=== PATIENT | male | born 1965 | race Caucasian/White ===

== ENCOUNTER 2019-04-30 06:09 | Observation (INO) ==
--- NOTE | 2019-04-09 09:48 | PAT Medication Instructions ---
Medication Instructions Date of Service April 09, 2019 Home Medications bupropion HCl [Wellbutrin XL] 300 mg PO QAM pantoprazole 20 mg PO QAM pramipexole 1.5 mg PO HS rosuvastatin 10 mg PO QPM STOP taking 24 hours before surgery pramipexole 1.5 mg PO HS Take morning of surgery With a small sip of water, OTHERWISE NOTHING TO EAT OR DRINK AFTER MIDNIGHT: bupropion HCl [Wellbutrin XL] 300 mg PO QAM pantoprazole 20 mg PO QAM Take evening before surgery rosuvastatin 10 mg PO QPM Other Notes If you have any questions please call us at [phone] or [phone] or [phone] or [phone]
--- NOTE | 2019-04-10 13:41 | Anesthesiology Consultation ---
Date of Service April 10, 2019 Assessment & Plan (1) Encounter for pre-operative examination: Chart Review Chart Review: Pending: Refer to Additional Notes / Consult section (pending preop testing (labs, EKG, CXR)) and Patient seen in Pre Admission Testing Teaching & Discussion Pre-Anesthesia Teaching/Discussion Notes: Instructed NPO after midnight before surgery,except medications with 15 cc of water. Medication instructions provid ed according to the PAT guidelines. History Surgery Operation Date: 04/30/19 07:45 Proposed Procedures p C5-C6, C6-C7 Anterior Cervical Discectomy and Fusion - Neeraj Downing, Height/Weight Height: 5 ft 10 in Weight: 79.1 kg Allergies Allergy/AdvReac Type Severity Reaction Status Date / Time simvastatin AdvReac Muscle Pain Verified 04/03/19 08:34 Medications Home Medications Medication Instructions Recorded Confirmed Last Taken bupropion HCl [Wellbutrin XL] 300 mg PO QAM 04/03/19 04/03/19 Unknown pantoprazole 20 mg PO QAM 04/03/19 04/03/19 Unknown pramipexole 1.5 mg PO HS 04/03/19 04/03/19 Unknown rosuvastatin 10 mg PO QPM 04/03/19 04/03/19 Unknown Past Medical History Medical History Barretts esophagus Depression Diabetes mellitus, type 2 diet controlled GERD (gastroesophageal reflux disease) controlled Hearing deficit BL DESIR History of colon polyps Hyperlipidemia Restless leg syndrome Exercise / Class Metabolic Activity II 4-5 Yardwork/Stairs/Walk up hill Past Family History Family History Grandmother (Maternal) Family history of diabetes mellitus Past Surgical History Surgical History History of arthroscopy of both knees History of carpal tunnel release BL History of colonoscopy w/ polypectomy History of esophagogastroduodenoscopy (EGD) History of wisdom tooth extraction Hx of LASIK Past Anesthesia History No Hx of Anesthesia Complications and No Family Hx of Anesthesia Complications History of PONV No Hx of PONV and No Hx of Motion Sickness STOP BANG Total 4 Social History Smoking Status: Former smoker tobacco type: cigarettes and smokeless tobacco Do You Dip or Chew Tobacco: Yes (1 can per day/advised NPO) Smoking End Date: Quit years ago Hx Alcohol Use: Yes Alcohol type: beer alcohol intake frequency: a few times a week Hx Substance Use: No substance use type: does not use Review of Systems Reflux controlled. Patient denies chest pain, shortness of breath, cough, wheezing, palpitations. Physical Exam Vital Signs VITALS BP 136/82 P 72 TEMP 98.0 SP02 96%RA RESP 16 PHYSICAL Full neck and c-spine range of motion. Full TMJ range of motion. TMD 2 finger breaths Mallampati Score 3 Dentition: intact, crowns on molars Lungs: clear throughout to auscultation Cardiac: regular rate and rhythm, no murmurs noted Spine: normal Carotid arteries: negative bruit Extremities: no edema Trimmed kowalski
[2019-04-25 18:00] LABS: Basophils # (auto) 0.02 K/uL (0-0.2); Basophils % (auto) 0.2 %; Eosinophils # (auto) 0.07 K/uL (0-0.5); Eosinophils % (auto) 0.8 %; Hematocrit (blood only) 42.4 % (42-52); Hemoglobin 14.6 g/dL (14.0-18.0); Immature Granulocytes # (auto) 0.03 K/uL (0.00-0.02); Immature Granulocytes % (auto) 0.4 %; Lymphocytes # (auto) 2.14 K/uL (1.2-3.4); Mean Corpuscular Hgb Conc 34.4 g/dL (32-36); Mean Corpuscular Volume 98.8 fL (80-100); Mean Platelet Volume 10.7 fL (7.4-10.4); Monocytes # (auto) 0.47 K/uL (0.11-0.59); Monocytes % (auto) 5.5 %; Neutrophils # (auto) 5.83 K/uL (1.4-6.5); Neutrophils % (auto) 68.1 %; Platelet Count 168 K/uL (130-400); RDW Coefficient of Variation 12.4 % (11.5-14.5); RDW Standard Deviation 44.7 fL (36.4-46.3); Red Blood Count 4.29 M/uL (4.7-6.1); White Blood Count 8.56 K/uL (4.8-10.8)
[2019-04-25 18:22] LABS: BUN Creatinine Ratio 12.8 (10-20); Blood Urea Nitrogen 15 mg/dl (7-18); Calcium 8.9 mg/dl (8.5-10.1); Carbon Dioxide 29 mmol/L (21-32); Chloride 105 mmol/L (98-107); Est GFR (African American) 79.2; Est GFR (Non-African American) 68.4; Glucose 91 mg/dl (70-99); Potassium 3.9 mmol/L (3.5-5.1); Sodium 140 mmol/L (136-145)
[2019-04-25 19:19] LABS: Appearance Urine Clear (Clear); Bacteria Urine Automated Negative (Negative); Bilirubin Urine Negative (Negative); Blood Urine Trace (Negative); Cast Urine Automated 0 /lpf (0-5); Color Urine Yellow; Epithelial Cell Urine Auto 0-5 /lpf (0-5); Glucose Urine UA Negative (Negative); Ketones Urine Negative (Negative); Leukocyte Esterase Urine Negative (Negative); Nitrite Urine Negative (Negative); Protein Urine Negative (Negative); Specific Gravity Urine 1.017 (1.000-1.030); Urobilinogen Urine Negative (Negative); pH Urine 7.5 (4.5-7.5)
[~2019-04-30 06:09] MED LIST: ACETAMINOPHEN 500 MG TAB PO SCH; CEFAZOLIN 1000MG 1,000 MG/7.5 ML SYR IV SCH; CeleBREX 200 MG CAP PO SCH; GABAPENTIN 600 MG DOSE PO SCH; LR 15ML/HR IV SCH
[2019-04-30] MEDS ORDERED: GABAPENTIN 300 MG CAP ONE ×2 (06:29→06:30)
[2019-04-30] MEDS ORDERED: ACETAMINOPHEN 500 MG TAB ONE (06:29)
[2019-04-30] MEDS ORDERED: CeleBREX 200 MG CAP ONE (06:29)
[2019-04-30] MEDS ORDERED: CEFAZOLIN 1,000 MG/7.5 ML IV PUSH IV ONE (06:29)
[2019-04-30] MEDS ORDERED: SUCCINYLCHOLINE CHLORIDE 20 MG/ML 10 ML VIAL ONE (06:30)
[2019-04-30] MEDS ORDERED: DEXAMETHASONE SOD INJ 4 MG/ML VIAL ONE (06:30)
[2019-04-30] MEDS ORDERED: LIDOCAINE HCL 2% 2 ML VIAL/AMP(20MG/ML) INFIL ONE (06:30)
[2019-04-30] MEDS ORDERED: PROPOFOL IV EMULSION 10 MG/ML 100 ML VIAL IV ONE ×2 (06:30→09:35)
[2019-04-30] MEDS ORDERED: ROCURONIUM BROMIDE 10 MG/ML 5 ML VIAL ONE (06:30)
[2019-04-30] MEDS ORDERED: PROPOFOL IV EMULSION 10 MG/ML 20 ML VIAL IV ONE (06:30)
[2019-04-30] MEDS ORDERED: fentaNYL citrate 100 MCG/2 ML VIAL ONE ×3 (06:30→09:16)
[2019-04-30] MEDS ORDERED: MIDAZOLAM HCL 1 MG/ML 2ML VIAL ONE (06:30)
[2019-04-30] MEDS ORDERED: ONDANSETRON INJ 2 MG/ML 2 ML VIAL ONE (06:30)
[2019-04-30] MEDS ORDERED: HYDROmorphone INJ 2 MG/ML SYR/VIAL ONE ×2 (06:31→09:21)
[2019-04-30 07:03] LABS: Partial Thromboplastin Time 25.9 Seconds (21.0-31.0); Prothrombin Time 10.1 Seconds (9.0-12.0)
[2019-04-30] MEDS ORDERED: BACITRACIN INJ 50,000 UNIT VIAL ONE (07:12)
--- NOTE | 2019-04-30 07:30 | History & Physical Bridge Note ---
Date of Service April 30, 2019 History & Physical Bridge Note I have examined the patient, reviewed the History & Physical and in the interval since the performance of the History & Physical I have noted the following changes of clinical significance: no changes noted
--- NOTE | 2019-04-30 07:31 | History & Physical Report ---
Date of Service April 30, 2019 Assessment & Plan (1) Cervical stenosis of spinal canal: Anterior cervical discectomy and fusion C5-C6 and C6-C7 Present on Admission?: Yes History of Present Illness Chief Complaint: Neck and arm pain Primary Care Provider: Lenin King DO This is a 53-year-old male presents with chronic persistent left arm pain. After failing extensive course of nonoperative care is here for surgical intervention. Allergies Allergy/AdvReac Type Severity Reaction Status Date / Time simvastatin AdvReac Muscle Pain Verified 04/03/19 08:34 Home Medications Home Medications Medication Instructions Recorded Confirmed Type bupropion HCl [Wellbutrin XL] 300 mg PO QAM 04/03/19 04/30/19 History pramipexole 1.5 mg PO HS 04/03/19 04/30/19 History rosuvastatin 10 mg PO QPM 04/03/19 04/30/19 History Past Med/Surg History Medical History Barretts esophagus Depression Diabetes mellitus, type 2 diet controlled GERD (gastroesophageal reflux disease) controlled Hearing deficit BL DESIR History of colon polyps Hyperlipidemia Restless leg syndrome Surgical History History of arthroscopy of both knees History of carpal tunnel release BL History of colonoscopy w/ polypectomy History of esophagogastroduodenoscopy (EGD) History of wisdom tooth extraction Hx of LASIK Family History Grandmother (Maternal) Family history of diabetes mellitus Social History Preferred Language: Malaysian Communication Ability: Effective 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 Beliefs That Will Affect Care: None Current Living Situation: Significant Other Other Information That Helps Us Care for You: No Feels Safe at Home: Yes Safety Concerns: Feels Safe At This Time Smoking Status: Former smoker Tobacco Type: cigarettes and smokeless tobacco ; Do You Dip or Chew Tobacco: Yes (1 can per day/advised NPO) ; Smoking End Date: Quit years ago ; Second Hand Exposure: Yes (as a child) ; Tobacco Cessation Education Requested by Patient: No Hx Alcohol Use: Yes Alcohol type: beer Hx Substance Use: No Physical Exam Physical Exam: Patient is alert and oriented neurologically intact. Results & Data Vital Signs (Past 12 Hours) Vital Signs Temp Pulse Resp BP Pulse Ox 04/30/19 06:42 36.9 C 66 20 154/94 H 94
[2019-04-30] MEDS ORDERED: HYDROmorphone INJ 2 MG/ML SYR/VIAL IV PRN (07:54)
[2019-04-30] MEDS ORDERED: ONDANSETRON INJ 2 MG/ML 2 ML VIAL IV PRN ×2 (07:54→10:47)
[2019-04-30] MEDS ORDERED: ATROPINE SULFATE 0.1 MG/ML 10ML SYR IV PRN (07:54)
[2019-04-30] MEDS ORDERED: fentaNYL citrate 100 MCG/2 ML VIAL IV PRN (07:54)
[2019-04-30] MEDS ORDERED: ePHEDrine sulfate 50 MG/ML AMP IV PRN (07:54)
[2019-04-30] MEDS ORDERED: PROMETHAZINE HCL 12.5 MG in SODIUM CHLORIDE 0.9% 50 ML IV PRN ×2 (07:54→10:47)
[2019-04-30] MEDS ORDERED: METOCLOPRAMIDE HCL INJ 5 MG/ML 2 ML VIAL IV PRN ×2 (07:54→10:47)
[2019-04-30] MEDS ORDERED: DEXAMETHASONE SOD INJ 4 MG/ML VIAL IV PRN (07:54)
[2019-04-30] MEDS ORDERED: NEOSTIGMINE METHYLSULFATE 1 MG/ML 10ML VIAL ONE (08:15)
[2019-04-30] MEDS ORDERED: GLYCOPYRROLATE 0.2 MG/ML VIAL ONE (08:15)
[2019-04-30] MEDS ORDERED: FLOSEAL HEMOSTATIC MATRIX 10ML TOP ONE (09:07)
--- NOTE | 2019-04-30 09:17 | Operative Report ---
Post Operative Report Pre & Post Diagnosis Operation Date: 04/30/19 07:45 Pre-Op Diagnosis: Spinal Stenosis, Cervical Region Post-Op Diagnosis: Spinal Stenosis, Cervical Region I identified the patient and participated in the time-out.: Yes Procedure Operation Date: 04/30/19 07:45 Actual Procedures #1 anterior cervical discectomy with bilateral foraminotomies C5-6 and C6-7. #2 anterior cervical arthrodesis C5-6 and C6-7. #3 placement of Spira 8 mm cage at C5-6 and 9 mm at C6-7 both filled with DBM. #4 application of stout plate and screws from C5-C7. Surgeon Neeraj Downing, [employer] Evangelina Weiss Estimated Blood Loss 100 Findings Consistent with Post-Op Diagnosis Specimens None Indications This is a 53-year-old male who presents with chronic persistent neck and arm symptoms. After failing extensive course of nonoperative care elected to undergo the above-mentioned procedure. Description of Procedure Patient was met with identified and informed consent obtained. Patient was then taken to the operative suite underwent intubation placed in the supine position Carlos Eduardo table the head Ceja inspector and adjuster golf club head. All bony prominences well-padded eyes inspected to ensure no external pressure placed upon the peer at this point the anterior cervical spine was prepped and draped in normal sterile fashion. With the assistance of fluoroscopy identified the C6 vertebral body and a transverse incision was placed along the right anterior aspect of the cervical spine overlying this region. Sharp dissection with the assistance of bipolar electrocautery was performed down to and exposing the anterior cervical spine from C5-C7. Self-retaining retractors placed. Then performed a complete discectomy at C5-6 out to the uncovertebral joints bilaterally. [place] distracting pins were utilized to assist in visualization. Removed all posterior annular fibers longitudinal ligament bilateral foraminotomies performed. Endplates were then burred to subcortical bleeding bone and an 8 mm spiral cage filled with DBM tapped in position. Distraction apparatus was remov ed and I proceeded to C6-7. Again complete discectomy performed out to the uncovertebral joints bilaterally. [place] distracting pins again utilized. Removed all posterior annular fibers longitudinal ligament bilateral foraminotomies were performed. Endplates burred to subcortical bleeding bone and a 9 mm spiral cage filled with DBM tapped in position. All distraction apparatus was removed and a stout plate and screws applied with the assistance of fluoroscopy. Incision was then copiously irrigated explored to ensure no demonstrate surrounding structures or bleeding. A 10 round MARIE drain inserted. The incision was then closed with 2 Vicryl in the fashion of 4 Monocryl for final skin closure. Steri-Strip sterile dressings placed. Patient will continue to PACU stable condition. Please note Evangelina Weiss present at the entire procedure involved the patient positioning complex portions of the surgery and final skin closure. Lastly spinal cord monitoring was utilized throughout the procedure no changes noted. I attest to the content of the Intraoperative Record and any orders documented therein. Any exceptions are noted below.
[2019-04-30] MEDS ORDERED: ESMOLOL HCL INJ 10 MG/ML 10ML VIAL IV ONE (09:41)
--- NOTE | 2019-04-30 09:41 | Fluoroscopy Report ---
FL cervical 2-3V CLINICAL HISTORY: ACDF C5-C7 COMPARISON STUDY: None FLUOROSCOPY TIME: 14 seconds NUMBER OF FLUOROSCOPIC IMAGES: 2 FINDINGS: Image intensifier utilized for an anterior fusion from C5 through C7 IMPRESSION: Image intensifier utilized for an anterior fusion from C5 through C7. The above report was generated using voice recognition software. It may contain grammatical, syntax or spelling errors. Electronically signed by: Khanh Reilly M.D. 04/30/2019 9:40 AM
[2019-04-30] MEDS ORDERED: RACEPINEPHRINE 2.25% NEBU SOLN 0.5 ML VIAL INH PRN (10:47)
[2019-04-30] MEDS ORDERED: NALOXONE HCL 0.4 MG/1 ML VIAL/CARP IV PRN (10:47)
[2019-04-30] MEDS ORDERED: LORazepam 0.5 MG/1 ML VIAL IV PRN (10:47)
[2019-04-30] MEDS ORDERED: TRAMADOL HCL 50 MG TABLET PO PRN (10:47)
[2019-04-30] MEDS ORDERED: DO NOT ADMINISTER FLU VACCINE PRN (10:47)
[2019-04-30] MEDS ORDERED: ACETAMINOPHEN 500 MG TAB PO PRN (10:47)
[2019-04-30] MEDS ORDERED: ACETAMINOPHEN 1,000 MG/100 ML VIAL IV PRN (10:47)
[2019-04-30] MEDS ORDERED: ALUMINUM/MAGNESIUM SUSP 30 ML UDC PO PRN (10:47)
[2019-04-30] MEDS ORDERED: DEXAMETHASONE SOD PHOSPHATE 8 MG in SYRINGE 0 ML IV PRN (10:47)
[2019-04-30] MEDS ORDERED: SOD PHOSPHATE/SOD BIPHOSPHATE ENEMA 132 ML BTL PR PRN (10:47)
[2019-04-30] MEDS ORDERED: OXYCODONE HCL IR 5 MG TAB (IMMEDIATE RELEASE) PO PRN (10:47)
[2019-04-30] MEDS ORDERED: DO NOT ADMINISTER PNEUMOCOCCAL VACCINE PRN (10:47)
[2019-04-30] MEDS ORDERED: MAGNESIUM HYDROXIDE SUSP 30 ML UDC PO PRN (10:47)
[2019-04-30] MEDS ORDERED: HYDROmorphone INJ 0.5 MG/0.5 ML SYR IV PRN (10:47)
[2019-04-30] MEDS ORDERED: FAMOTIDINE 20 MG TAB PO PRN (10:47)
[2019-04-30] MEDS ORDERED: HYDROmorphone INJ 1 MG/ML SYRINGE IV PRN (10:47)
[2019-04-30] MEDS ORDERED: ONDANSETRON 4 MG OD TAB PO PRN (10:47)
[2019-04-30] MEDS ORDERED: LORazepam 0.5 MG TAB PO PRN (10:47)
--- NOTE | 2019-04-30 10:55 | Anesthesiology Progress Note ---
Date of Service April 30, 2019 Anesthesia Post Procedure Vital Signs Vital Signs: Temp Pulse Pulse Resp BP Pulse Ox 04/30/19 10:35 36.2 C L 66 13 146/94 H 97 04/30/19 10:25 36.2 C L 68 13 136/83 98 04/30/19 10:15 65 13 136/86 97 04/30/19 10:05 75 12 148/88 H 97 04/30/19 09:55 74 18 152/91 H 95 04/30/19 09:45 66 12 140/88 95 04/30/19 09:35 79 16 152/98 H 98 04/30/19 09:28 36.0 C L 78 15 156/101 H 92 04/30/19 06:42 36.9 C 66 20 154/94 H 94 Pain Intensity Posterior Neck: Pain Intensity: 2 Neck: Pain Intensity: 2 Transfer of Care Handoff Completed per policy Notes Mental Status: alert / awake / arousable and participated in evaluation Patient Amnestic to Procedure: Yes Nausea / Vomiting: adequately controlled Pain: adequately controlled Airway Patency, RR, SpO2: stable & adequate BP & HR: stable & adequate Hydration State: stable & adequate Anesthetic Complications: no major complications apparent
[2019-04-30] MEDS: LACTATED RINGER'S 1,000 ML IV SCH ×2 (12:19→21:54)
[2019-04-30] MEDS: CEFAZOLIN 2000MG 2,000 MG/15 ML SYR IV SCH (20:58)
[2019-04-30] MEDS ORDERED: PRAMIPEXOLE DIHYDROCHLO 0.5 MG TAB PO SCH (21:00)
[2019-04-30] MEDS ORDERED: ROSUVASTATIN CALCIUM 10 MG TAB PO SCH (21:00)
[2019-04-30] MEDS ORDERED: DOCUSATE SODIUM/SENNA 50/8.6MG TAB PO SCH (21:00)
[2019-05-01] MEDS: CEFAZOLIN 2000MG 2,000 MG/15 ML SYR IV SCH (03:54)
[2019-05-01] MEDS ORDERED: POLYETHYLENE (MIRALAX) 17 GM PACK PO SCH (06:00)
--- NOTE | 2019-05-01 07:30 | Discharge Summary ---
Date of Service May 01, 2019 Admission HPI Per Admitting Provider This is a 53-year-old male presents with chronic persistent left arm pain. After failing extensive course of nonoperative care is here for surgical intervention. Principal Diagnosis Cervical spinal stenosis with radiculopathy Discharge Data Allergies Allergy/AdvReac Type Severity Reaction Status Date / Time simvastatin AdvReac Muscle Pain Verified 04/03/19 08:34 Procedures Performed Operation Date: 04/30/19 07:45 Actual Procedures p C5-C6, C6-C7 Anterior Cervical Discectomy and Fusion, Spinal Cord Monitoring - Neeraj Downing DO Ordered Studies 04/30/19 07:45 FL cervical 2-3V Routine FL fluoroscopy <1hr Routine Hospital Course (1) Cervical stenosis of spinal canal: Patient underwent anterior cervical discectomy fusion tolerated as well as taken to the orthopedic floor postoperative. Postop day #1 is swallowing well no hoarseness. Arm symptoms improved. Strength intact. Subsequently discharged home. Discharge orders and instructions from the chart for further review. Total Time Total Time Spent Total Time Spent (In Minutes): 20 minutes Discharge Plan Discharge Items Patient Disposition: Home - Self-Care Reason For Visit: Spinal Stenosis, Cervical Region Discharge Diagnosis: Cervical spinal stenosis with radiculopathy Activity: As commented below Non-emergency contact: Primary Care Provider Call non-emergency contact if: you have any medication questions Follow-up/Referrals: Lenin King DO [Primary Care Provider] - Diet: Regular Addtl Attending Provider Instructions: ACTIVITY RECOMMENDATIONS: SELF CARE INSTRUCTIONS AFTER CERVICAL FUSIONS 1. No smoking. Smoking drastically decreases the chance of a solid fusion. 2. No bending, lifting more than 5 pounds, or twisting (roll like a log when turning in bed). 3. You may shower 3 days after surgery. Thoroughly dry wound. Do not soak in the tub. 4. Cervical collar: Must be worn at all times including sleeping. You may remove the brace only to bath, eat and if you are sitting in a recliner. 5. Please walk as much as you can for exercise. Gradually increase the distance that you walk as your endurance increases. SPECIAL CARE INSTRUCTIONS: VERY IMPORTANT TO READ AND REVIEW A. Do not take any anti-inflammatory medications (i.e. Indocin, Advil, Aspirin, Naprosyn, Aleve, Motrin, etc.) as these may inhibit the chance of a solid fusion. Tylenol is okay to take. B. Your surgical incision has been closed with a cosmetic suture under the skin that will dissolve in about 6 weeks. In 14 days, you can use a pair of clean scissors and cut the suture that is left outside of the skin at the ends of your incision. C. Complications are uncommon, but please contact us if you have any signs or symptoms of: 1. wound infection (fever higher than 102.5 degrees F, redness, separation of wound, drainage, or increasing pain from the incision) 2. blood clots in legs (pain, swelling, redness and warmth in legs) 3. urinary tract infection (fever higher than 102.5 degrees, burning upon urination or increased frequency of urination) 4. nerve problems (inability to walk on your toes or heels, numbness, loss of bowel or bladder control) 5. any other symptoms that concern you. D. Please call the office at if you have any concerns or questions about your operation or recovery. MANAGING PAIN AFTER SPINAL SURGERY 1. Narcotic medication is intended for short-term use and will be provided for surgical pain. Surgical pain usually lasts for a period of 4-6 weeks. Narcotic medication includes Percocet, Vicodin, Darvocet, Tylenol #3 or Lortab. 2. Longer-term pain is more appropriately treated with non-narcotic medication such as Tylenol ES. 3. Muscle spasm is not appropriately treated with narcotics. Muscle relaxers such as Soma, Flexeril or Skelaxin can be used along with Tylenol ES. 4. Remember that we all live with some "aches and pains". This is not unusual or uncommon after an injury or as we get older. 5. We will provide appropriate medication within the normal guidelines of their prescribed use. We will also be very cautious and aware of potential abuse and extended duration of patients' medication needs. 6. Please allow 2-3 days to process refills. Prescriptions will not be mailed but must be picked up at the office. FOLLOW UP VISIT: Keep your scheduled follow-up appointment. Any questions, please call the office at . Pending Studies at Discharge: No Stand-Alone Forms: [employer], Smoking Cessation Medications and NC Order Prescriptions: New oxycodone 5 mg tablet 5 mg PO Q6H PRN (Reason: pain, severe) Qty: 14 RF: 0 Continued pramipexole 1.5 mg Tablet 1.5 mg PO HS RF: 0 rosuvastatin 10 mg Tablet 10 mg PO QPM RF: 0 bupropion HCl [Wellbutrin XL] 300 mg Tablet Extended Release 24 Hr 300 mg PO QAM RF: 0 Discharge Orders: Discharge Order (Routine); Ordered 05/01/19 Ordered By: Neeraj Downing Admission Data Admit Date/Time: 04/30/19 09:21 Attending Provider: Neeraj Downing Admit Provider: Neeraj Downing Primary Care Provider: Lenin King
[2019-05-01] MEDS ORDERED: BuPROPion XL 300 MG TABCR PO SCH (09:00)
[2019-05-02] MEDS ORDERED: bisacodyL 10 MG SUPP PR PRN (09:18)
== END 2019-05-01 11:28 | disposition home or self-care (01) ==
LOC: ASU 06:09 → 3E 06:09